=== PATIENT | male | born 1955 | race American Indian/Alaskan Native ===

== ENCOUNTER 2018-09-08 12:56 | Emergency (ER) | payer SELFPAY ==
--- NOTE | 2018-09-08 13:43 | Emergency Department Report ---
Chief Complaint: Medical Clearance Stated Complaint: HBP Time Seen by Provider: 09/08/18 13:40 - HPI History of Present Illness: Pt states he is here for a refill of his blood pressure medication He states he was at the dentist and they checked his pressure and it was e levated so they would not complete the dental work he says he ran out of his BP medication a week ago he is unsure what blood pressure medication he is on, he states the provider he saw previously has closed he denies any sx MSE complete MSE screening note: Focused history and physical exam performed. ED Disposition for MSE Condition: Stable
[2018-09-08] MEDS ORDERED: CATAPRES PO ONE (15:27)
[2018-09-08] MEDS ORDERED: APRESOLINE IV ONE ×2 (15:30→17:20)
[2018-09-08] MEDS ORDERED: NORCO 5/325 PO ONE (15:32)
--- NOTE | 2018-09-08 15:32 | Emergency Department Report ---
ED Neuro Deficit HPI - General Chief Complaint: Medical Clearance Stated Complaint: HBP Time Seen by Provider: 09/08/18 13:40 Source: patient Mode of arrival: Ambulatory Limitations: No Limitations - History of Present Illness Initial Comments: Patient is a pleasant 63-year-old -[place] male who comes to us from his dentist office today. Patient was at the dentist because of his left molar pain. When they took his blood pressure and found it to be elevated so they sent the ER. At that time patient was asymptomatic. He was having no chest pain or shortness of breath. The only thing bothering him is his tooth. On admission blood pressure was 209/119, this is to the ER. Past medical history Patient has been told he needed high blood pressure medicines in the past but he does not take any because he ran out. Previous smoker Home meds none -: Gradual History of same: No On Anticoagulants: No Associated Symptoms: other (dizzy in ER). denies: confusion, chest pain, cough, diaphoresis, fever/chills, headaches, loss of appetite, malise, nausea/vomiting, vertigo, seizures, shortness of breath, syncope, weakness - Related Data Home Medications: Previous Rx's Medication Instructions Recorded Last Taken Type Lisinopril [Zestril TAB] 30 mg PO QDAY #30 tab 09/08/18 Unknown Rx amLODIPine [Norvasc] 10 mg PO DAILY #30 tab 09/08/18 Unknown Rx hydroCHLOROthiazide [HCTZ] 25 mg PO QDAY #30 tablet 09/08/18 Unknown Rx traMADol [Ultram] 50 mg PO Q6HR PRN #10 tablet 09/08/18 Unknown Rx Allergies/Adverse Reactions: Allergies Allergy/AdvReac Type Severity Reaction Status Date / Time No Known Allergies Allergy Unverified 09/08/18 13:41 ED Review of Systems ROS: Stated complaint: HBP Other details as noted in HPI Comment: All other systems reviewed and negative Constitutional: denies: chills, fever Eyes: denies: eye pain ENT: as per HPI, dental pain. denies: ear pain, throat pain Respiratory: denies: cough Cardiovascular: denies: chest pain Endocrine: denies: excessive sweating, intolerance to cold Gastrointestinal: denies: abdominal pain Genitourinary: denies: urgency Musculoskeletal: denies: back pain Skin: as per HPI. denies: lesions Neurological: other (dizzy in er, not before). denies: headache, weakness, numbness, paresthesias, confusion, abnormal gait, vertigo Hematological/Lymphatic: easy bleeding ED Past Medical Hx - Past Medical History Hx Hypertension: Yes Additional medical history: elevated cholesterol - Surgical History Past Surgical History?: Yes Additional Surgical History: right knee - Family History Family history: no significant - Social History Smoking Status: Former Smoker Substance Use Type: None - Medications Home Medications: Home Medications Medication Instructions Recorded Confirmed Last Taken Type Lisinopril [Zestril TAB] 30 mg PO QDAY #30 tab 09/08/18 Unknown Rx amLODIPine [Norvasc] 10 mg PO DAILY #30 tab 09/08/18 Unknown Rx hydroCHLOROthiazide [HCTZ] 25 mg PO QDAY #30 tablet 09/08/18 Unknown Rx traMADol [Ultram] 50 mg PO Q6HR PRN #10 tablet 09/08/18 Unknown Rx ED Neuro Physical Exam - General Limitations: No Limitations General appearance: alert Suspected Stroke: No - Head Head exam: Present: atraumatic, normocephalic - Eye Eye exam: Present: normal appearance, PERRL, EOMI - ENT ENT exam: Present: normal exam, mucous membranes moist - Neck Neck exam: Present: normal inspection - Respiratory Respiratory exam: Present: normal lung sounds bilaterally - Cardiovascular Cardiovascular Exam: Present: regular rate - GI/Abdominal GI/Abdominal exam: Present: soft, normal bowel sounds - Rectal Rectal exam: Present: deferred - Extremities Exam Extremities exam: Present: normal inspection, full ROM - Back Exam Back exam: Present: normal inspection, full ROM - Neurological Exam Neurological exam: Present: alert, oriented X3, CN II-XII intact, normal gait, reflexes normal - NIHSS Assessment Interval: Baseline 1a. Level of Consciousness: alert/keenly responsive 1b. LOC Questions: answers both correctly 1c. LOC Commands: performs tasks correctly 2. Best Gaze: normal 3. Visual: no visual loss 4. Facial Palsy: normal symmetrical movement 5b. Motor Arm Right: no drift 5a. Motor Arm Left: no drift 6a. Motor Leg Left: no drift 6b. Motor Leg Right: no drift 7. Limb Ataxia: absent 8. Sensory: normal 9. Best Language: no aphasia 10. Dysarthria: normal 11. Extinction/Inattention: no abnormality Total Score: 0 Stroke Severity: No Stroke Symptoms - Psychiatric Psychiatric exam: Present: normal affect, normal mood - Skin Skin exam: Present: warm, dry, intact ED Course Vital Signs 09/08/18 09/08/18 09/08/18 13:39 15:48 17:28 Temperature 97.9 F Pulse Rate 61 70 70 Respiratory 20 Rate Blood Pressure 209/119 240/130 240/130 O2 Sat by Pulse 99 Oximetry - Reevaluation(s) Reevaluation #1: 09/08/18 bp when arriving in fast track 240/130 w manual cuff repeated later after meds 220/110 Reevaluation #2: 09/08/18 18:09 [facility] pt has rx filled norvasc 10 daily lisinopril 30 daily hctz 25 daily Prescriber is William Chacon MD - Lab Data Result diagrams: 09/08/18 15:40 09/08/18 16:24 Lab Results 09/08/18 09/08/18 09/08/18 Range/Units 15:40 15:40 16:24 WBC 9.1 (4.5-11.0) K/mm3 RBC 5.34 H (3.65-5.03) M/mm3 Hgb 16.0 H (11.8-15.2) gm/dl Hct 45.5 (35.5-45.6) % MCV 85 (84-94) fl MCH 30 (28-32) pg MCHC 35 H (32-34) % RDW 12.9 L (13.2-15.2) % Plt Count 198 (140-440) K/mm3 Sodium TNR 140 Potassium TNR 4.1 Chloride TNR 103.8 Carbon Dioxide TNR 24 Anion Gap TNR 16 BUN TNR 14 Creatinine TNR 1.2 Estimated GFR TNR > 60 BUN/Creatinine Ratio TNR 12 Glucose TNR 96 Calcium TNR 9.0 Total Bilirubin TNR 0.70 AST TNR 18 ALT TNR 23 Alkaline Phosphatase TNR 72 Total Protein TNR 7.1 Albumin TNR 4.2 Albumin/Globulin Ratio TNR 1.4 Urine Color (Yellow) Urine Turbidity (Clear) Urine pH (5.0-7.0) Ur Specific Goodwell (1.003-1.030) Urine Protein (Negative) mg/dL Urine Glucose (UA) (Negative) mg/dL Urine Ketones (Negative) mg/dL Urine Blood (Negative) Urine Nitrite (Negative) Urine Bilirubin (Negative) Urine Urobilinogen (<2.0) mg/dL Ur Leukocyte Esterase (Negative) Urine WBC (Auto) (0.0-6.0) /HPF Urine RBC (Auto) (0.0-6.0) /HPF U Epithel Cells (Auto) (0-13.0) /HPF Urine Bacteria (Auto) (Negative) /HPF Hyaline Casts /LPF Urine Mucus /HPF 09/08/18 Range/Units 16:38 WBC (4.5-11.0) K/mm3 RBC (3.65-5.03) M/mm3 Hgb (11.8-15.2) gm/dl Hct (35.5-45.6) % MCV (84-94) fl MCH (28-32) pg MCHC (32-34) % RDW (13.2-15.2) % Plt Count (140-440) K/mm3 Sodium Potassium Chloride Carbon Dioxide Anion Gap BUN Creatinine Estimated GFR BUN/Creatinine Ratio Glucose Calcium Total Bilirubin AST ALT Alkaline Phosphatase Total Protein Albumin Albumin/Globulin Ratio Urine Color Yellow (Yellow) Urine Turbidity Clear (Clear) Urine pH 5.0 (5.0-7.0) Ur Specific Goodwell 1.017 (1.003-1.030) Urine Protein <15 mg/dl (Negative) mg/dL Urine Glucose (UA) Neg (Negative) mg/dL Urine Ketones Neg (Negative) mg/dL Urine Blood Neg (Negative) Urine Nitrite Pos (Negative) Urine Bilirubin Neg (Negative) Urine Urobilinogen < 2.0 (<2.0) mg/dL Ur Leukocyte Esterase Tr (Negative) Urine WBC (Auto) 6.0 (0.0-6.0) /HPF Urine RBC (Auto) 2.0 (0.0-6.0) /HPF U Epithel Cells (Auto) < 1.0 (0-13.0) /HPF Urine Bacteria (Auto) 4+ (Negative) /HPF Hyaline Casts 1 /LPF Urine Mucus Few /HPF - Radiology Data Radiology results: report reviewed, image reviewed nap - Medical Decision Making no cp no sob no headache only symptom was dizziness when in ER no focal neuro def at any time in ED discussed with Dr Collins medicated with hydralazine. medicated for dental pain I've checked on pt several times and he states he feels better. Remedicated with bp meds and repeat bp no end organ failure on labs xray noted ct head noted Labs 09/08/18 09/08/18 09/08/18 15:40 15:40 16:24 WBC 9.1 RBC 5.34 H Hgb 16.0 H Hct 45.5 MCV 85 MCH 30 MCHC 35 H RDW 12.9 L Plt Count 198 Sodium TNR 140 Potassium TNR 4.1 Chloride TNR 103.8 Carbon Dioxide TNR 24 Anion Gap TNR 16 BUN TNR 14 Creatinine TNR 1.2 Estimated GFR TNR > 60 BUN/Creatinine Ratio TNR 12 Glucose TNR 96 Calcium TNR 9.0 Total Bilirubin TNR 0.70 AST TNR 18 ALT TNR 23 Alkaline Phosphatase TNR 72 Total Protein TNR 7.1 Albumin TNR 4.2 Albumin/Globulin Ratio TNR 1.4 Urine Color Urine Turbidity Urine pH Ur Specific Goodwell Urine Protein Urine Glucose (UA) Urine Ketones Urine Blood Urine Nitrite Urine Bilirubin Urine Urobilinogen Ur Leukocyte Esterase Urine WBC (Auto) Urine RBC (Auto) U Epithel Cells (Auto) Urine Bacteria (Auto) Hyaline Casts Urine Mucus 09/08/18 16:38 WBC RBC Hgb Hct MCV MCH MCHC RDW Plt Count Sodium Potassium Chloride Carbon Dioxide Anion Gap BUN Creatinine Estimated GFR BUN/Creatinine Ratio Glucose Calcium Total Bilirubin AST ALT Alkaline Phosphatase Total Protein Albumin Albumin/Globulin Ratio Urine Color Yellow Urine Turbidity Clear Urine pH 5.0 Ur Specific Goodwell 1.017 Urine Protein <15 mg/dl Urine Glucose (UA) Neg Urine Ketones Neg Urine Blood Neg Urine Nitrite Pos Urine Bilirubin Neg Urine Urobilinogen < 2.0 Ur Leukocyte Esterase Tr Urine WBC (Auto) 6.0 Urine RBC (Auto) 2.0 U Epithel Cells (Auto) < 1.0 Urine Bacteria (Auto) 4+ Hyaline Casts 1 Urine Mucus Few My Active Orders 09/08/18 15:30 EKG (12 lead) Stat 09/08/18 15:31 Tech to do EKG .once 09/08/18 17:21 CMP [Comprehensive Metabolic Panel] Stat Vital Signs 09/08/18 09/08/18 09/08/18 13:39 15:48 17:28 Temperature 97.9 F Pulse Rate 61 70 70 Respiratory 20 Rate Blood Pressure 209/119 240/130 240/130 O2 Sat by Pulse 99 Oximetry see course section and nursing flow sheet - Differential Diagnosis ro cva; htn urgency v emergency - Core Measures Measure Exclusions: not indicated Critical care attestation.: If time is entered above; I have spent that time in minutes in the direct care of this critically ill patient, excluding procedure time. ED Disposition Clinical Impression: Pain, dental, Hypertensive urgency Disposition: TO HOME OR SELFCARE Is pt being admited?: No Does the pt Need Aspirin: No Condition: Stable Instructions: Low Sodium Diet (ED), Hypertension (ED) Additional Instructions: IT IS IMPORTANT THAT YOU FOLLOW UP AND MAKE SURE BP IS CONTROLLED YOU DO NOT WANT TO HAVE STROKE OR HEART ATTACK TAKE MEDS ORDERED MOTRIN OR TYLENOL FOR MILD PAIN ULTRAM FOR SEVERE PAIN FOLLOW UP WITH DENTIST IN AM YOU WERE GIVEN 1.2 MU OF BICILLIN IN ER FOR DENTAL PAIN THEY CAN NOW TREAT THE TOOTH BELOW ARE REFERRALS TO PCP IN AREA CALL AND MAKE APPNT LOW SALT LOW FAT DIET DRINK A LOT OF WATER AVOID ALCOHOL Referrals: [facility] [Other] - 3-5 Days AKBAR CARRION MD [Staff Physician] - 3-5 Days Time of Disposition: 18:01
[2018-09-08 16:13] LABS: Hematocrit 45.5 % (35.5-45.6); Mean Corpuscular HGB Conc 35 % (32-34); Mean Corpuscular Volume 85 fl (84-94); Platelet Count 198 K/mm3 (140-440); Red Blood Count 5.34 M/mm3 (3.65-5.03); Red Cell Distribution Width 12.9 % (13.2-15.2)
[2018-09-08 16:17] LABS: BUN/Creatinine Ratio TNR; Blood Urea Nitrogen TNR mg/dL (9-20); Calcium TNR mg/dL (8.4-10.2)
[2018-09-08 16:18] LABS: Alanine Aminotransferase TNR units/L (7-56); Albumin TNR g/dL (3.9-5); Hemolysis Index TNR
[2018-09-08 17:11] LABS: Alanine Aminotransferase 23 units/L (7-56); Albumin 4.2 g/dL (3.9-5); BUN/Creatinine Ratio 12; Blood Urea Nitrogen 14 mg/dL (9-20); Hemolysis Index 7
--- NOTE | 2018-09-08 17:11 | Cat Scan Report ---
PROCEDURE: CT HEAD/BRAIN WO CON TECHNIQUE: Computerized tomography of the head was performed without contrast material. CT DOSE LENGTH PRODUCT: 920.48 mGy-cm. HISTORY: dizzy hypertension COMPARISONS: None currently available. FINDINGS: There is no evidence for acute ischemia. There is no hemorrhage. There is no midline shift. There is no hydrocephalus. There is no mass. Age appropriate birch-white matter attenuation is noted. There is no calvarial fracture. The temporal bones demonstrate aerated mastoid air cells. The middle ears appear unremarkable. Paranasal sinuses are unremarkable. Globes are intact. IMPRESSION: * No acute intracranial findings. This document is electronically signed by Axel Flores MD., September 08 2018 05:08:40 PM ET
[2018-09-08 17:41] LABS: Bacteria,Urine 4+ /HPF (Negative); Bilirubin,Urine NEG (Negative); Blood,Urine NEG (Negative); Color,Urine Yellow (Yellow); Hyaline Casts,Urine 1 /LPF; Mucus,Urine FEW /HPF; Protein,Urine <15 mg/dL mg/dL (Negative); Urobilinogen,Urine < 2.0 mg/dL (<2.0)
--- NOTE | 2018-09-08 17:46 | XRay Report ---
PROCEDURE: XR CHEST ROUTINE 2V TECHNIQUE: PA and lateral views were obtained. HISTORY: sob COMPARISONS: FINDINGS: The heart is mildly enlarged. Pulmonary vasculature is not distended. No evidence of pulmonary edema or pleural effusion. No infiltrates or masses are detected. No acute bone abnormalities are seen. IMPRESSION: Mild cardiomegaly otherwise negative exam.. This document is electronically signed by David Ramirez MD., September 08 2018 05:43:55 PM ET
[2018-09-08] MEDS ORDERED: BICILLIN L-A IM ONE (17:53)
[2018-09-08 18:03] LABS: Alanine Aminotransferase 24 units/L (7-56); Albumin 4.2 g/dL (3.9-5); BUN/Creatinine Ratio 13; Blood Urea Nitrogen 14 mg/dL (9-20); Calcium 9.1 mg/dL (8.4-10.2); Hemolysis Index 6
[2018-09-08 18:16] VITALS: BP 196/89
== END 2018-09-08 18:31 | disposition home or self-care (01) ==
LOC: ED 12:56
DX: K08.89 Other specified disorders of teeth and supporting structures (principal); I10 Essential (primary) hypertension; Z87.891 Personal history of nicotine dependence
CPT/HCPCS: 36415; 70450; 71046; 80053; 81001; 85027; 96372; 96374; 96376; 99284; J0360; J0561